=== PATIENT | male | born 1995 | race Caucasian/White ===

== ENCOUNTER 2023-01-16 08:11 | Outpatient (CLI) | payer OTHER | END 2023-01-16 08:12 | disposition home or self-care (01) | LOC: BICMRI 08:11 | PROVIDERS: ATTEND Family Medicine | DX: S49.91XA Unspecified injury of right shoulder and upper arm, initial encounter (principal); S43.431A Superior glenoid labrum lesion of right shoulder, initial encounter; R60.0 Localized edema ==